=== PATIENT | male | born 1990 | race Caucasian/White ===

== ENCOUNTER 2017-02-25 10:26 | Emergency (ER) | payer BC, MEDICAID ==
[2017-02-25 11:43] LABS: URINE BILIRUBIN NEGATIVE (NEGATIVE); URINE BLOOD NEGATIVE (NEGATIVE); URINE GLUCOSE (UA) NEGATIVE (NEGATIVE); URINE KETONE NEGATIVE (NEGATIVE); URINE PH 6.5 (4.6 - 8.0); URINE PROTEIN TRACE mg/dL (NEGATIVE); URINE UROBILINOGEN 0.2 E.U./dL (0.2 - 1.0)
[2017-02-25 11:47] LABS: URINE COLOR YELLOW
[2017-02-25 11:48] LABS: URINE BACTERIA NONE SEEN /hpf (NONE SEEN); URINE EPITHELIAL CELLS OCCASIONAL /lpf (FEW); URINE RBC 0-2 /hpf (0-5); URINE WBC 0-2 /hpf (0-5)
[2017-02-25 11:57] LABS: AMPHETAMINE URINE NEGATIVE (NEGATIVE); BARBITURATES URINE NEGATIVE (NEGATIVE); METHADONE URINE NEGATIVE (NEGATIVE)
--- NOTE | 2017-02-25 13:16 | Diagnostic Imaging Report ---
CT lumbar spine without IV contrast History: Trauma Comparison: CT abdomen pelvis performed the same day Technique/procedure: Reconstructions from CT abdomen and pelvis performed the same day was performed in multiple planes. Total DLP 942 CTD I 20.4 Findings: Osteopenia is noted. There is no evidence of an acute fracture or subluxation. Mild degenerative changes of the lumbar spine are noted. Mild degenerative Changes of the SI joints are noted. IMPRESSION: No evidence of acute fracture or subluxation. Mild degenerative changes. Osteopenia.
--- NOTE | 2017-03-04 22:14 | ED Physician Chart ---
Back Pain HPI - General Stated Complaint: BACK PAIN Time Seen by Provider: 02/25/17 11:06 - Related Data Home Medications Medication Instructions Recorded Confirmed Hydrocodone/APAP 5mg/325mg [[place] 1 tab PO DAILY 02/25/17 02/25/17 5mg/325mg] Previous Rx's Medication Instructions Recorded Gabapentin 600 mg PO Q6H PRN #40 tablet 02/25/17 Allergies Allergy/AdvReac Type Severity Reaction Status Date / Time No Known Allergies Allergy Verified 02/25/17 11:05 Family Medical History - Family Member Mother History Unknown: Yes Course Vital Signs Temp 98.6 F 02/25/17 11:06 HR 116 02/25/17 11:06 RR 16 02/25/17 11:06 BP 148/87 02/25/17 11:06 O2 Sat % 98 02/25/17 11:06 Temp 98.0 F 02/25/17 13:17 HR 88 02/25/17 13:17 RR 16 02/25/17 13:17 BP 120/69 02/25/17 13:17 O2 Sat % 97 02/25/17 13:17 Back Pain/Injury - Lab Data Lab Results 02/25/17 02/25/17 Range/Units 10:30 10:30 Urine Source RANDOM Urine Color YELLOW Urine Clarity HAZY (CLEAR) Urine pH 6.5 (4.6 - 8.0) Ur Specific [place] 1.015 (1.005-1.030) Urine Protein TRACE (NEGATIVE) mg/dL Urine Glucose (UA) NEGATIVE (NEGATIVE) mg/dL Urine Ketones NEGATIVE (NEGATIVE) mg/dL Urine Blood NEGATIVE (NEGATIVE) Urine Nitrate NEGATIVE (NEGATIVE) Urine Bilirubin NEGATIVE (NEGATIVE) Urine Urobilinogen 0.2 (0.2 - 1.0) E.U./dL Ur Leukocyte Esterase NEGATIVE (NEGATIVE) Urine RBC 0-2 H (0-5) /hpf Urine WBC 0-2 (0-5) /hpf Ur Epithelial Cells OCCASIONAL (FEW) /lpf Urine Bacteria NONE SEEN (NONE SEEN) /hpf Urine Opiates Screen NEGATIVE (NEGATIVE) Urine Methadone Screen NEGATIVE (NEGATIVE) Ur Barbiturates Screen NEGATIVE (NEGATIVE) Ur Tricyclics Screen NEGATIVE (NEGATIVE) Ur Phencyclidine Scrn NEGATIVE (NEGATIVE) Amphetamines Screen NEGATIVE (NEGATIVE) U Methamphetamines Scrn NEGATIVE (NEGATIVE) U Benzodiazepines Scrn POSITIVE H (NEGATIVE) U Cocaine Metab Screen NEGATIVE (NEGATIVE) U Cannabinoids Screen POSITIVE H (NEGATIVE) Disposition Disposition: PT DISCHARGED HOME Condition: Stable Instructions: Back Pain, Adult Prescriptions: Gabapentin 600 mg PO Q6H PRN #40 tablet PRN Reason: pain Referrals: Rob Umaña [Active] - 1-3 Days ED Discharge Plan - Patient Disposition Admit/Discharge/Transfer: PT DISCHARGED HOME Condition at Disposition: Stable Prescriptions: Gabapentin 600 mg PO Q6H PRN #40 tablet PRN Reason: pain Instructions: Back Pain, Adult Accepting Physician: Rob Umaña [Active] - 1-3 Days
--- NOTE | 2017-03-04 22:17 | ED Physician Chart ---
History of Present Illness - General Chief Complaint: Low Back Pain or Injury Stated Complaint: BACK PAIN Time Seen by Provider: 02/25/17 11:06 Source: Patient Exam Limitations: No Limitations - History of Present Illness Timing/Duration: constant Quality/Severity: moderate Back Pain Location: lumbar spine Back Pain Radiation: buttocks Method of Injury/Prior Injury: unknown Modifying Factors: movement Associated Symptoms: lower back pain Allergies/Adverse Reactions: Allergies No Known Allergies Allergy (Verified 02/25/17 11:05) Home Medications: Ambulatory Orders Gabapentin 600 mg PO Q6H PRN #40 tablet 02/25/17 Hydrocodone/APAP 5mg/325mg [[place] 5mg/325mg] 1 tab PO DAILY 02/25/17 Past History - Past Medical History Medical History: Degenerative disk disease Surgical History: No Surgical History LMP (females 10-50): Unknown - Social History Smoking Status: Current every day smoker Hx Alcohol Use: No Hx Drug Use: No Family Medical History - Family Member Mother History Unknown: Yes Review of Systems - Review of Systems Constitutional: Reports: No Symptoms Reported Musculoskeletal: Reports: Back Pain Physical Exam - Physical Exam General Appearance: WD/WN Back Exam: decreased range of motion, muscle spasm (LUMBOSACRAL SPASMS AND TENDERNESS) Neurologic: oriented x 3 ED Discharge Plan - Patient Disposition Admit/Discharge/Transfer: PT DISCHARGED HOME Condition at Disposition: Stable Prescriptions: Gabapentin 600 mg PO Q6H PRN #40 tablet PRN Reason: pain Instructions: Back Pain, Adult Accepting Physician: Rob Umaña [Active] - 1-3 Days
== END 2017-02-25 13:30 | disposition home or self-care (01) ==
LOC: ER 10:26
DX: M54.5 Low back pain (principal); F17.200 Nicotine dependence, unspecified, uncomplicated
CPT/HCPCS: 99285; 96372; 72131; 80307; 81001; J1885